=== PATIENT | female | born 1925 | race Hispanic/Latino ===

== ENCOUNTER 2017-10-12 12:55 | Inpatient (IN) | payer MEDICARE ==
[~2017-10-12] VITALS: Ht 162.6 cm; Wt 85.5 kg
[2017-10-12] MEDS ORDERED: ACETAMINOPHEN EXTRA STRENGTH 500 MG TABLET ONE (13:17)
[2017-10-12] MEDS ORDERED: CEFTRIAXONE SODIUM 2 GM VIAL ONE (13:17)
[2017-10-12] MEDS ORDERED: SODIUM CHLORIDE 0.9% 1000ML 1,000 ML IV ONE ×3 (13:17→23:32)
[2017-10-12 13:23] LABS: BASOPHILS % (AUTO) 0.2 % (0.0-5.0); EOSINOPHILS % (AUTO) 0.1 % (0.0-8.0); HEMATOCRIT 40.8 % (36-48); LYMPHOCYTES % (AUTO) 15.4 % (21.0-51.0); MEAN CORPUSCULAR HEMOGLOBIN 30.7 pg (27.0-33.0); MEAN CORPUSCULAR VOLUME 90.4 fL (79-99); MONOCYTES % (AUTO) 6.3 % (3.0-13.0); PLATELET COUNT (AUTO) 169 K/uL (130-400); RED BLOOD CELL COUNT(AUTO) 4.51 MIL/uL (4.00-5.50); RED CELL DISTRIBUTION WIDTH 15.3 % (11.0-15.5); WHITE BLOOD COUNT (AUTO) 9.2 K/uL (4.8-10.8)
[2017-10-12 13:29] LABS: CARBON DIOXIDE 33 mmol/L (21-32); CHLORIDE 99 mmol/L (101-111); CREATININE 0.7 mg/dL (0.5-1.5); GLOMERULAR FILTR. RATE CALC 84 mL/min (>60); GLUCOSE,RANDOM 197 mg/dL (70-105); SODIUM SERUM 137 mmol/L (136-145); UREA NITROGEN, BLOOD 12 mg/dL (7-18)
[2017-10-12 13:40] LABS: INR 0.99 (0.85-1.15); PARTIAL THROMBOPLASTIN TIME 31.3 SEC (26.3-35.5); PROTHROMBIN TIME 10.4 SEC (9.6-11.6)
[2017-10-12 13:44] LABS: ALANINE AMINOTRANSFERASE 20 U/L (12-78); ALBUMIN 3.3 g/dL (3.5-5.0); ASPARTATE AMINOTRANSFERASE 21 U/L (10-37); BILIRUBIN,TOTAL 0.6 mg/dL (0.2-1.0); CREATINE KINASE MB 0.7 ng/mL (0.5-3.6); CREATINE KINASE, TOTAL 40 U/L (21-232); MYOGLOBIN 40 ng/mL (10-92); TOTAL PROTEIN, SERUM 7.2 g/dL (6.0-8.3); TROPONIN I < 0.04 ng/mL (0.00-0.06)
[2017-10-12] MEDS ORDERED: VANCOMYCIN 1GM+NS 250ML 250 ML IV ONE (15:26)
[2017-10-12 15:37] LABS: APPEARANCE,URINE Clear (CLEAR); BILIRUBIN,URINE Small (NEGATIVE); COLOR,URINE Dark Yellow (YELLOW); GLUCOSE, URINE (UA) Negative (NEGATIVE); KETONES,URINE Trace mg/dL (NEGATIVE); LEUKOCYTE ESTERASE ,URINE Small (NEGATIVE); NITRATE,URINE Negative (NEGATIVE); OCCULT BLOOD,URINE Negative (NEGATIVE); PH,URINE 5.5 (5.0-8.0); PROTEIN,URINE POS 2+ (NEGATIVE)
[2017-10-12 15:53] LABS: BACTERIA,URINE Rare /HPF (None Seen); RBC,URINE 0-1 /HPF (0-1); SQUAMOUS EPITHELIAL CELL,UR Few /LPF (0-2)
[2017-10-12 15:55] LABS: HYALINE CASTS, URINE 0-1 /LPF (0-1 /LPF)
[2017-10-12] MEDS ORDERED: OSELTAMIVIR PHOSPHATE 75 MG CAP ONE (16:47)
[2017-10-12] MEDS ORDERED: IPRATROPIUM 0.5 MG/2.5 ML INH IH ONE (18:11)
[2017-10-12] MEDS ORDERED: MORPHINE SULFATE 2 MG/ML 1ML SYG IV PRN (18:30)
[2017-10-12] MEDS ORDERED: ONDANSETRON HCL 4 MG/2 ML VIAL IV PRN (18:30)
[2017-10-12] MEDS ORDERED: LACTULOSE 20 GM/30 ML UDCUP PO PRN (18:30)
[2017-10-12] MEDS ORDERED: ACETAMINOPHEN-CODEINE 300/30MG TAB PO PRN (18:30)
[2017-10-12] MEDS ORDERED: GUAIFENESIN-DM 200/20 MG 10 ML PO PRN (18:30)
[2017-10-12] MEDS ORDERED: HYDRALAZINE HCL 20 MG/ML VIAL IV PRN (18:30)
[2017-10-12] MEDS ORDERED: ZOLPIDEM TARTRATE 5 MG TAB PO PRN (18:30)
[2017-10-12] MEDS ORDERED: AZITHROMYCIN 500MG+NS 250ML 250 ML IV SCH (18:30)
[2017-10-12] MEDS ORDERED: CEFTRIAXONE 1GM/D5W 50ML 50 ML IV SCH (18:30)
[2017-10-12 18:31] LABS: ABG BASE EXCESS -4.9 mmol/L (-2.0-3.0); ABG HCO3 33.6 mmol/L (21.0-28.0); ABG OXYGEN SATURATION 93.4 % (95.0-99.0); ABG PCO2 > 150 mmHg (32-45)
[2017-10-12] MEDS ORDERED: PROPOFOL 1000 MG/100 ML 100 ML IV ONE (18:39)
[2017-10-12] MEDS: BENZONATATE 100 MG CAPSULE PO SCH (21:00)
[2017-10-12] MEDS: OSELTAMIVIR PHOSPHATE 75 MG CAP PO SCH (21:00)
[2017-10-12] MEDS: FAMOTIDINE 20MG TAB 20 MG TAB PO SCH (21:00)
[2017-10-12] MEDS: METHYLPREDNISOLONE SOD SUCC 125MG/2ML VIAL IV SCH (21:00)
[2017-10-12 23:30] VITALS: BP 140/64
[2017-10-12 23:45] VITALS: BP 115/39
[2017-10-13] VITALS (26 sets, daily range): BP systolic 98–149; BP diastolic 42–81
[2017-10-13] MEDS ORDERED: LEVO5TAB13 PO (01:33)
[2017-10-13] MEDS ORDERED: NEO/3.5O18 OP (01:33)
[2017-10-13] MEDS ORDERED: CYAN500 PO (01:33)
[2017-10-13] MEDS ORDERED: MULT-1192 PO (01:33)
[2017-10-13] MEDS ORDERED: FURO40TA5 PO (01:33)
[2017-10-13] MEDS ORDERED: METF500T6 PO (01:33)
[2017-10-13] MEDS ORDERED: FLUT16H NASAL (01:33)
[2017-10-13] MEDS ORDERED: ANAS1TAB7 PO (01:33)
[2017-10-13] MEDS ORDERED: ACET-2893 PO (01:33)
[2017-10-13] MEDS ORDERED: BRIM5DRO2 OP (01:33)
[2017-10-13] MEDS ORDERED: LOSA25TA21 PO (01:33)
[2017-10-13] MEDS ORDERED: ALBU1.252 IH (01:33)
[2017-10-13] MEDS ORDERED: MECL-129 PO (01:33)
[2017-10-13] MEDS ORDERED: PROPOFOL 1000 MG/100 ML 100 ML IV ONE (01:35)
[2017-10-13] MEDS ORDERED: GLUCAGON 1MG KIT 1 MG ML IM PRN (02:15)
[2017-10-13] MEDS ORDERED: PROPOFOL 1000 MG/100 ML IV PRN (02:15)
[2017-10-13] MEDS ORDERED: SODIUM CHLORIDE 0.9% 1000ML 1,000 ML IV SCH (02:15)
[2017-10-13] MEDS ORDERED: DEXTROSE 50%-WATER 50 ML DISP.SYRIN IV PRN (02:15)
[2017-10-13 04:31] LABS: HEMATOCRIT 39.5 % (36-48); MEAN CORPUSCULAR HGB CONC 34.3 g/dL (32.0-36.0); MEAN CORPUSCULAR VOLUME 90.6 fL (79-99); NUCLEATED RED BLOOD CELLS 0.1 % (0.0-0.19); PLATELET COUNT (AUTO) 156 K/uL (130-400); RED BLOOD CELL COUNT(AUTO) 4.36 MIL/uL (4.00-5.50); RED CELL DISTRIBUTION WIDTH 14.9 % (11.0-15.5); WHITE BLOOD COUNT (AUTO) 11.6 K/uL (4.8-10.8)
[2017-10-13 04:57] LABS: CREATININE 0.9 mg/dL (0.5-1.5); POTASSIUM 3.4 mmol/L (3.5-5.1)
[2017-10-13] MEDS: INSULIN HUMULIN R 100 UNIT/ML 3ML SQ SCH ×3 (06:00→17:54)
[2017-10-13] MEDS: IPRATROPIUM/ALBUTEROL SULFATE 3 ML SOLUTION IH SCH ×4 (06:33→19:29)
[2017-10-13 07:18] LABS: BAND NEUTROPHILS % (MANUAL) 3 % (0-2); LYMPHOCYTES % (MANUAL) 6 % (22-44); MAN.DIFF COMMENT-IMPRESSION MANUAL DIFFERENTIAL; MONOCYTES % (MANUAL) 6 % (2-9); SEGMENTED NEUTROPHILS % 85 % (40-70)
[2017-10-13 07:19] LABS: PLATELET MORPHOLOGY COMMENT ADEQUATE
[2017-10-13] MEDS ORDERED: INSULIN HUMULIN R 100 UNIT/ML 3ML SQ SCH (07:30)
[2017-10-13 07:52] LABS: ABG HCO3 22.3 mmol/L (21.0-28.0); ABG OXYGEN SATURATION 99.9 % (95.0-99.0); ABG PCO2 30 mmHg (32-45)
[2017-10-13] MEDS: BENZONATATE 100 MG CAPSULE PO SCH ×3 (09:00→20:26)
[2017-10-13] MEDS: OSELTAMIVIR PHOSPHATE 75 MG CAP PO SCH ×2 (10:09→21:34)
[2017-10-13] MEDS: FAMOTIDINE 20MG TAB 20 MG TAB PO SCH ×2 (10:09→21:34)
[2017-10-13] MEDS: ENOXAPARIN SODIUM 40 MG/0.4 ML SYRINGE SQ SCH (10:11)
[2017-10-13] MEDS: METHYLPREDNISOLONE SOD SUCC 125MG/2ML VIAL IV SCH ×2 (10:11→21:34)
[2017-10-13] MEDS: AZITHROMYCIN 500MG+NS 250ML 250 ML IV SCH (10:12)
[2017-10-13 10:54] LABS: ABG BASE EXCESS -2.4 mmol/L (-2.0-3.0); ABG HCO3 24.4 mmol/L (21.0-28.0); ABG OXYGEN SATURATION 96.4 % (95.0-99.0); ABG PCO2 49 mmHg (32-45)
[2017-10-13] MEDS ORDERED: FUROSEMIDE 10 MG/ML 2ML VIAL IV SCH (11:23)
[2017-10-13] MEDS: PROPOFOL 1000 MG/100 ML 100 ML IV PRN (12:02)
[2017-10-13] MEDS: CEFTRIAXONE SODIUM 1 GM IVP SCH (14:22)
[2017-10-14] VITALS (24 sets, daily range): BP systolic 61–167; BP diastolic 42–81
[2017-10-14] MEDS: PROPOFOL 1000 MG/100 ML 100 ML IV PRN (00:06)
[2017-10-14] MEDS: INSULIN HUMULIN R 100 UNIT/ML 3ML SQ SCH ×5 (00:07→21:20)
[2017-10-14] MEDS: IPRATROPIUM/ALBUTEROL SULFATE 3 ML SOLUTION IH SCH ×4 (00:56→16:46)
[2017-10-14 04:07] LABS: HEMATOCRIT 38.6 % (36-48); MEAN CORPUSCULAR HGB CONC 34.6 g/dL (32.0-36.0); MEAN CORPUSCULAR VOLUME 89.7 fL (79-99); PLATELET COUNT (AUTO) 163 K/uL (130-400); RED BLOOD CELL COUNT(AUTO) 4.31 MIL/uL (4.00-5.50); RED CELL DISTRIBUTION WIDTH 15.1 % (11.0-15.5)
[2017-10-14 04:21] LABS: BAND NEUTROPHILS % (MANUAL) 11 % (0-2); LYMPHOCYTES % (MANUAL) 9 % (22-44); MAN.DIFF COMMENT-IMPRESSION MANUAL DIFFERENTIAL; MONOCYTES % (MANUAL) 8 % (2-9); PLATELET MORPHOLOGY COMMENT ADEQUATE; SEGMENTED NEUTROPHILS % 72 % (40-70)
[2017-10-14 04:23] LABS: CREATININE 0.9 mg/dL (0.5-1.5)
[2017-10-14 04:38] LABS: POTASSIUM 2.7 mmol/L (3.5-5.1)
[2017-10-14] MEDS: LIDOCAINE HCL-MPF 1% 2ML VIAL IVP PRN ×2 (05:14→09:11)
[2017-10-14] MEDS: POTASSIUM CHLORIDE 20MEQ/100ML 100 ML IV PRN ×2 (05:15→09:11)
[2017-10-14 08:40] LABS: ABG BASE EXCESS -1.2 mmol/L (-2.0-3.0); ABG HCO3 20.7 mmol/L (21.0-28.0); ABG OXYGEN SATURATION 99.6 % (95.0-99.0); ABG PCO2 28 mmHg (32-45)
[2017-10-14] MEDS: ENOXAPARIN SODIUM 40 MG/0.4 ML SYRINGE SQ SCH (09:10)
[2017-10-14] MEDS: POTASSIUM CHLORIDE 10% ELIXIR 20 MEQ/15 ML UDCUP PO PRN ×2 (09:10→11:30)
[2017-10-14] MEDS: FAMOTIDINE 20MG TAB 20 MG TAB PO SCH ×2 (09:10→20:16)
[2017-10-14] MEDS: AZITHROMYCIN 500MG+NS 250ML 250 ML IV SCH (09:11)
[2017-10-14] MEDS: OSELTAMIVIR PHOSPHATE 75 MG CAP PO SCH ×2 (09:11→20:16)
[2017-10-14] MEDS: BENZONATATE 100 MG CAPSULE PO SCH ×3 (09:11→20:14)
[2017-10-14] MEDS: METHYLPREDNISOLONE SOD SUCC 125MG/2ML VIAL IV SCH ×2 (09:11→21:20)
[2017-10-14] MEDS: CEFTRIAXONE SODIUM 1 GM IVP SCH (13:20)
[2017-10-14] MEDS ORDERED: ACETAMINOPHEN 325 MG TAB PO PRN (18:30)
[2017-10-14] MEDS: FUROSEMIDE 40 MG TABLET PO SCH (20:15)
[2017-10-15] VITALS (16 sets, daily range): BP systolic 105–148; BP diastolic 48–87
[2017-10-15] MEDS: IPRATROPIUM/ALBUTEROL SULFATE 3 ML SOLUTION IH SCH ×4 (00:14→21:59)
[2017-10-15 03:53] LABS: BASOPHILS % (AUTO) 0.1 % (0.0-5.0); HEMATOCRIT 37.8 % (36-48); LYMPHOCYTES % (AUTO) 8.1 % (21.0-51.0); MEAN CORPUSCULAR HEMOGLOBIN 30.6 pg (27.0-33.0); MEAN CORPUSCULAR HGB CONC 33.8 g/dL (32.0-36.0); MEAN CORPUSCULAR VOLUME 90.6 fL (79-99); MONOCYTES % (AUTO) 2.4 % (3.0-13.0); NEUTROPHILS % (AUTO) 89.4 % (40.0-77.0); PLATELET COUNT (AUTO) 189 K/uL (130-400); RED BLOOD CELL COUNT(AUTO) 4.17 MIL/uL (4.00-5.50); RED CELL DISTRIBUTION WIDTH 15.3 % (11.0-15.5); WHITE BLOOD COUNT (AUTO) 8.3 K/uL (4.8-10.8)
[2017-10-15 04:15] LABS: ALBUMIN 2.5 g/dL (3.5-5.0); BILIRUBIN,TOTAL 0.3 mg/dL (0.2-1.0); CREATININE 0.8 mg/dL (0.5-1.5); POTASSIUM 3.5 mmol/L (3.5-5.1); TOTAL PROTEIN, SERUM 6.1 g/dL (6.0-8.3)
[2017-10-15] MEDS: POTASSIUM CHLORIDE 20 MEQ ERTAB PO PRN ×2 (04:29→06:05)
[2017-10-15] MEDS: INSULIN HUMULIN R 100 UNIT/ML 3ML SQ SCH ×4 (06:03→21:24)
[2017-10-15] MEDS ORDERED: DILTIAZEM HCL 5 MG/ML 5 ML VIAL IVP SCH (08:21)
[2017-10-15] MEDS ORDERED: DILTIAZEM HCL 125 MG/25 ML 125 MG in SODIUM CHLORIDE 0.9% 100 ML IV PRN (08:30)
[2017-10-15] MEDS ORDERED: AMIODARONE HCL 900 MG in DEXTROSE 5%-WATER 500 ML IV SCH (08:30)
[2017-10-15] MEDS ORDERED: AMIODARONE HCL 150 MG in DEXTROSE 5%-WATER 100 ML IV SCH (08:30)
[2017-10-15] MEDS: AZITHROMYCIN 500MG+NS 250ML 250 ML IV SCH (09:00)
[2017-10-15] MEDS: ENOXAPARIN SODIUM 40 MG/0.4 ML SYRINGE SQ SCH (10:00)
[2017-10-15] MEDS: FUROSEMIDE 40 MG TABLET PO SCH ×2 (10:00→16:48)
[2017-10-15] MEDS: FAMOTIDINE 20MG TAB 20 MG TAB PO SCH ×2 (10:00→21:13)
[2017-10-15] MEDS: METHYLPREDNISOLONE SOD SUCC 125MG/2ML VIAL IV SCH (10:00)
[2017-10-15] MEDS: OSELTAMIVIR PHOSPHATE 75 MG CAP PO SCH ×2 (11:50→21:12)
[2017-10-15] MEDS: BENZONATATE 100 MG CAPSULE PO SCH ×3 (11:51→21:13)
[2017-10-15] MEDS: DILTIAZEM HCL 60 MG TABLET PO SCH ×2 (11:51→21:11)
[2017-10-15] MEDS ORDERED: AZITHROMYCIN 250 MG TABLET PO SCH (13:00)
[2017-10-15] MEDS: AZITHROMYCIN 250 MG TABLET PO SCH (15:27)
[2017-10-15] MEDS: CEFDINIR 250MG/5ML 60ML BOTTLE PO SCH ×2 (15:27→21:20)
[2017-10-15] MEDS ORDERED: INSULIN HUMULIN R 100 UNIT/ML 3ML ONE (17:30)
[2017-10-15] MEDS ORDERED: METHYLPREDNISOLONE SOD SUCC 40MG/ML 1ML IVP SCH (21:01)
[2017-10-16 03:00] VITALS: BP 133/58
[2017-10-16 04:25] LABS: BASOPHILS % (AUTO) 0.1 % (0.0-5.0); HEMATOCRIT 40.3 % (36-48); LYMPHOCYTES % (AUTO) 8.3 % (21.0-51.0); MEAN CORPUSCULAR HEMOGLOBIN 30.4 pg (27.0-33.0); MEAN CORPUSCULAR HGB CONC 33.6 g/dL (32.0-36.0); MEAN CORPUSCULAR VOLUME 90.7 fL (79-99); MONOCYTES % (AUTO) 2.5 % (3.0-13.0); NEUTROPHILS % (AUTO) 89.1 % (40.0-77.0); NUCLEATED RED BLOOD CELLS 0.1 % (0.0-0.19); PLATELET COUNT (AUTO) 232 K/uL (130-400); RED BLOOD CELL COUNT(AUTO) 4.45 MIL/uL (4.00-5.50); RED CELL DISTRIBUTION WIDTH 14.8 % (11.0-15.5)
[2017-10-16 04:36] LABS: CREATININE 0.8 mg/dL (0.5-1.5)
[2017-10-16 04:52] LABS: B-TYPE NATRIURETIC PEPTIDE 485 pg/mL (0-100)
[2017-10-16] MEDS: DILTIAZEM HCL 60 MG TABLET PO SCH ×3 (05:33→22:27)
[2017-10-16] MEDS: INSULIN HUMULIN R 100 UNIT/ML 3ML SQ SCH ×4 (06:40→22:11)
[2017-10-16] MEDS: FUROSEMIDE 40 MG TABLET PO SCH ×4 (06:59→18:38)
[2017-10-16] MEDS: IPRATROPIUM/ALBUTEROL SULFATE 3 ML SOLUTION IH SCH ×3 (07:12→22:00)
[2017-10-16 07:56] VITALS: BP 128/67
[2017-10-16] MEDS: APIXABAN 5 MG TABLET PO SCH ×2 (11:22→22:29)
[2017-10-16] MEDS: BENZONATATE 100 MG CAPSULE PO SCH ×3 (11:22→22:28)
[2017-10-16] MEDS: OSELTAMIVIR PHOSPHATE 75 MG CAP PO SCH ×2 (11:22→22:27)
[2017-10-16] MEDS: FAMOTIDINE 20MG TAB 20 MG TAB PO SCH ×2 (11:22→22:28)
[2017-10-16] MEDS: CEFDINIR 250MG/5ML 60ML BOTTLE PO SCH ×2 (11:28→22:31)
[2017-10-16] MEDS: AZITHROMYCIN 250 MG TABLET PO SCH (11:34)
[2017-10-16 12:00] VITALS: BP 139/54
[2017-10-16 16:00] VITALS: BP 118/86
[2017-10-16 20:15] VITALS: BP 131/57
[2017-10-16] MEDS: METHYLPREDNISOLONE SOD SUCC 40MG/ML 1ML IVP SCH (22:26)
[2017-10-16 23:43] VITALS: BP 135/58
[2017-10-17 03:57] VITALS: BP 146/69
[2017-10-17] MEDS: DILTIAZEM HCL 60 MG TABLET PO SCH ×3 (04:00→20:48)
[2017-10-17 04:26] LABS: BASOPHILS % (AUTO) 0.1 % (0.0-5.0); HEMATOCRIT 41.8 % (36-48); LYMPHOCYTES % (AUTO) 10.5 % (21.0-51.0); MEAN CORPUSCULAR HEMOGLOBIN 30.8 pg (27.0-33.0); MEAN CORPUSCULAR HGB CONC 33.9 g/dL (32.0-36.0); MEAN CORPUSCULAR VOLUME 90.6 fL (79-99); MONOCYTES % (AUTO) 2.8 % (3.0-13.0); NEUTROPHILS % (AUTO) 86.6 % (40.0-77.0); PLATELET COUNT (AUTO) 236 K/uL (130-400); RED BLOOD CELL COUNT(AUTO) 4.62 MIL/uL (4.00-5.50); RED CELL DISTRIBUTION WIDTH 14.8 % (11.0-15.5); WHITE BLOOD COUNT (AUTO) 9.3 K/uL (4.8-10.8)
[2017-10-17 04:43] LABS: CREATININE 0.8 mg/dL (0.5-1.5); POTASSIUM 3.5 mmol/L (3.5-5.1)
[2017-10-17] MEDS ORDERED: POTASSIUM CHLORIDE 10 MEQ/TAB.SA PO ONE ×2 (05:27)
[2017-10-17] MEDS: INSULIN HUMULIN R 100 UNIT/ML 3ML SQ SCH ×4 (06:23→21:46)
[2017-10-17] MEDS: IPRATROPIUM/ALBUTEROL SULFATE 3 ML SOLUTION IH SCH ×3 (06:42→21:52)
[2017-10-17 07:00] VITALS: BP 137/60
[2017-10-17] MEDS: METHYLPREDNISOLONE SOD SUCC 40MG/ML 1ML IVP SCH ×2 (09:36→20:49)
[2017-10-17] MEDS: APIXABAN 5 MG TABLET PO SCH ×2 (09:37→20:47)
[2017-10-17] MEDS: OSELTAMIVIR PHOSPHATE 75 MG CAP PO SCH (09:37)
[2017-10-17] MEDS: FUROSEMIDE 40 MG TABLET PO SCH ×2 (09:37→20:47)
[2017-10-17] MEDS: FAMOTIDINE 20MG TAB 20 MG TAB PO SCH ×2 (09:37→20:49)
[2017-10-17] MEDS: BENZONATATE 100 MG CAPSULE PO SCH ×3 (09:37→20:48)
[2017-10-17] MEDS: POTASSIUM CHLORIDE 20 MEQ ERTAB PO PRN (09:40)
[2017-10-17] MEDS: CEFDINIR 250MG/5ML 60ML BOTTLE PO SCH ×2 (09:55→20:49)
[2017-10-17 11:00] VITALS: BP 138/71
[2017-10-17] MEDS: AZITHROMYCIN 250 MG TABLET PO SCH (12:27)
[2017-10-17 16:00] VITALS: BP 122/60
[2017-10-17 19:36] VITALS: BP 118/70
[2017-10-17 23:21] VITALS: BP 123/67
[2017-10-18] MEDS: DILTIAZEM HCL 60 MG TABLET PO SCH ×2 (03:20→12:30)
[2017-10-18 03:52] VITALS: BP 125/71
[2017-10-18] MEDS: IPRATROPIUM/ALBUTEROL SULFATE 3 ML SOLUTION IH SCH ×2 (05:30→13:55)
[2017-10-18] MEDS: INSULIN HUMULIN R 100 UNIT/ML 3ML SQ SCH ×3 (06:40→17:12)
[2017-10-18 07:00] VITALS: BP 123/61
[2017-10-18] MEDS: METHYLPREDNISOLONE SOD SUCC 40MG/ML 1ML IVP SCH (09:32)
[2017-10-18] MEDS: BENZONATATE 100 MG CAPSULE PO SCH ×2 (09:33→17:11)
[2017-10-18] MEDS: FUROSEMIDE 40 MG TABLET PO SCH (09:33)
[2017-10-18] MEDS: FAMOTIDINE 20MG TAB 20 MG TAB PO SCH (09:33)
[2017-10-18] MEDS: CEFDINIR 250MG/5ML 60ML BOTTLE PO SCH (09:43)
[2017-10-18] MEDS: APIXABAN 5 MG TABLET PO SCH (09:57)
[2017-10-18 11:00] VITALS: BP 127/47
[2017-10-18] MEDS: AZITHROMYCIN 250 MG TABLET PO SCH (12:30)
[2017-10-18 16:00] VITALS: BP 115/59
[2017-12-28] MEDS ORDERED: METF500T6 PO (17:49)
[2017-12-28] MEDS ORDERED: APIX5TAB PO (17:49)
[2017-12-28] MEDS ORDERED: FURO40TA5 PO (17:49)
[2017-12-28] MEDS ORDERED: BRIM15OS OU (17:49)
[2017-12-28] MEDS ORDERED: TRESIBA SQ (17:49)
[2017-12-28] MEDS ORDERED: ANAS1TAB7 PO (17:49)
[2017-12-28] MEDS ORDERED: DILT180C86 PO (17:49)
[2017-12-28] MEDS ORDERED: MECL-111 PO (17:49)
== END 2017-10-18 20:43 | DRG 208 ==
LOC: EDH 12:55 → EDHIP 18:25 → OBSVTOIN 18:25 → INTOOBSV 18:25 → 2BH 22:54 → 2CH 10-15 17:50 → 2AH 10-15 23:50
PROVIDERS: ADMIT Family Medicine; ATTEND Family Medicine
PROC: 0BH17EZ Insertion of Endotracheal Airway into Trachea, Via Natural or Artificial Opening (ICD-10-PCS; principal; 2017-10-12)
PROC: 5A1935Z Respiratory Ventilation, Less than 24 Consecutive Hours (ICD-10-PCS; 2017-10-12)
PROC: 5A09357 Assistance with Respiratory Ventilation, Less than 24 Consecutive Hours, Continuous Positive Airway Pressure (ICD-10-PCS; 2017-10-13)
PROC: 5A1935Z Respiratory Ventilation, Less than 24 Consecutive Hours (ICD-10-PCS; 2017-10-13)
DX: J10.00 Influenza due to other identified influenza virus with unspecified type of pneumonia (principal); J96.01 Acute respiratory failure with hypoxia; J44.0 Chronic obstructive pulmonary disease with (acute) lower respiratory infection; J96.02 Acute respiratory failure with hypercapnia; J44.1 Chronic obstructive pulmonary disease with (acute) exacerbation; I11.0 Hypertensive heart disease with heart failure; I48.91 Unspecified atrial fibrillation; J45.901 Unspecified asthma with (acute) exacerbation; I50.9 Heart failure, unspecified; E11.9 Type 2 diabetes mellitus without complications; E78.00 Pure hypercholesterolemia, unspecified; E78.5 Hyperlipidemia, unspecified; I34.0 Nonrheumatic mitral (valve) insufficiency; I35.1 Nonrheumatic aortic (valve) insufficiency; Z85.3 Personal history of malignant neoplasm of breast; Z90.12 Acquired absence of left breast and nipple
CPT/HCPCS: 31500; 36415; 36600; 71045; 71046; 80048; 80053; 81001; 82550; 82553; 82803; 82948; 83605; 83874; 83880; 84132; 84484; 85025; 85610; 85730; 87040; 87088; 87804; 92950; 93005; 94002; 94003; 94640; 94660; 99291; A4218; J0282; J0456; J0696; J1650; J1815; J1940; J2704; J2920; J2930; J3370; J3480; J3490; J7030; J7060